=== PATIENT | male | born 1980 | race Hispanic/Latino ===

== ENCOUNTER 2022-08-02 11:00 | Outpatient (CLI) | payer OTHER | END 2022-08-02 11:01 | disposition home or self-care (01) | LOC: CSHRAD 11:00 | PROVIDERS: ATTEND Student in an Organized Health Care Education/Training Program | DX: R13.14 Dysphagia, pharyngoesophageal phase (principal); R63.39 Other feeding difficulties; K21.9 Gastro-esophageal reflux disease without esophagitis | CPT/HCPCS: 74230 ==